=== PATIENT | female | born 1930 | race Caucasian/White ===

== ENCOUNTER → 2018-04-15 | Outpatient (CLI) | payer MEDICARE, BC ==
[~2018-04-15] MED LIST: AMLODIPINE-BEN1 EAC3 PO; ANTIVERT25 MG PO; CATAPRES0.1 MG PO; HYDROCHLOROTHIA25 M2 PO; LISINOPRIL20 MG PO; LUMIGAN2.5 M1 OPHTHALMIC; MAXZIDE-25 MG1 EACH PO; MECLIZINE HCL12.5 MG PO; NORVASC5 MG PO; PRILOSEC 20 MG20 MG PO; PRILOSEC20 MG PO; SIMVASTATIN40 MG PO; TOPROL XL25 MG PO
== END ==
LOC: M.RAD 13:10
DX: Z12.31 Encounter for screening mammogram for malignant neoplasm of breast (principal); I10 Essential (primary) hypertension

== ENCOUNTER → 2019-04-21 | Outpatient (CLI) | payer MEDICARE, BC | LOC: M.RAD 13:47 | DX: Z12.31 Encounter for screening mammogram for malignant neoplasm of breast (principal) ==

== ENCOUNTER → 2020-04-25 | Outpatient (CLI) | payer MEDICARE, BC | LOC: M.RAD 10:57 | PROVIDERS: ATTEND Family Medicine | DX: Z12.31 Encounter for screening mammogram for malignant neoplasm of breast (principal) ==

== ENCOUNTER → 2020-04-27 | Outpatient (CLI) | payer MEDICARE, BC | LOC: M.RAD 04-26 14:31 | PROVIDERS: ATTEND Family Medicine | DX: R92.2 Inconclusive mammogram (principal) ==

== ENCOUNTER → 2021-04-04 | Outpatient (CLI) | payer MEDICARE, BC | LOC: M.RAD 13:26 | PROVIDERS: ATTEND Family Medicine | DX: Z12.31 Encounter for screening mammogram for malignant neoplasm of breast (principal); N64.89 Other specified disorders of breast ==